=== PATIENT | male | born 1990 | race Caucasian/White ===

== ENCOUNTER 2024-01-21 23:02 | Emergency (ER) | payer SELFPAY ==
[2024-01-21 23:02] VITALS: BP 109/73; PULSE 104; RESP 20; TEMP 37.1; O2SAT 99; BMI 22.9
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
[2024-01-21 23:10] VITALS: PULSE 110; RESP 17; O2SAT 99
[2024-01-21 23:30] VITALS: BP 107/62; PULSE 101; RESP 17; TEMP 36.9; O2SAT 98
[2024-01-21 23:32] VITALS: BP 107/62; PULSE 100; RESP 17; TEMP 36.9; O2SAT 98
== END 2024-01-21 23:32 | disposition home or self-care (01) ==
PROVIDERS: Emergency Provider Emergency Medicine
DX: Z04.3 Encounter for examination and observation following other accident (principal)
CPT/HCPCS: 99282